=== PATIENT | female | born 1960 | race American Indian/Alaskan Native ===

== ENCOUNTER 2022-03-08 13:15 | Outpatient (CLI) | payer MEDICARE ==
[2022-03-10 12:54] LABS: Protein S, Free 103 % normal (50-147); Protein S, Total 107 % normal (70-140)
[2022-03-12 05:57] LABS: ANA Screen, IFA Negative (Negative)
== END 2022-03-08 13:16 | disposition home or self-care (01) ==
LOC: LAB 13:15
PROVIDERS: ATTEND Internal Medicine Hematology & Oncology
DX: D68.69 Other thrombophilia (principal)
CPT/HCPCS: 36415; 83516; 85220; 85240; 85301; 85305; 86038